=== PATIENT | male | born 1965 | race Asian ===

== ENCOUNTER 2021-08-03 02:23 | Emergency (ER) | payer OTHER ==
[~2021-08-03] VITALS: Ht 170.2 cm; Wt 68.0 kg
[2021-08-03 03:41] VITALS: BP 130/90; TEMP 98.1
== END 2021-08-03 03:41 | disposition home or self-care (01) ==
LOC: ED 02:23
DX: K29.60 Other gastritis without bleeding (principal); K21.9 Gastro-esophageal reflux disease without esophagitis
CPT/HCPCS: 99283